=== PATIENT | male | born 1930 | race Caucasian/White ===

== ENCOUNTER → 2017-04-14 | Outpatient (CLI) | payer MEDICARE, BC ==
[~2017-04-14] MED LIST: AMLODIPINE BESYL5 MG PO; ATENOLOL50 MG PO; BP MED; CHOL MED; LASIX20 MG PO; LEVOTHYROXINE75 MCG PO; LISINOPRIL10 MG PO; POTASSIUM CHLO10 ME2 PO; VITAMIN D1000 UNIT PO; XARELTO; XARELTO20 MG PO; ZYLOPRIM100 MG PO
--- NOTE | ~2017-04-14 | CT71 ---
[facility] A Service of [facility] RADIOLOGY TEXT RESULTS PATIENT: ARMANDO SMALLWOOD LOCATION: [facility] : 32 UNIT #: [id number] AGE: [address]: Ria Veras APRN SEX: M ORDER DR: [id number] [address] [address] [id number] O MR#: [id number] Acc #: [id number] NAME: ARMANDO SMALLWOOD. : 1930 SEX: M STUDY DATE/TIME: 04/14/2017 10:42 UNIT: [facility] ROOM: STUDY DESCRIPTION: CT Head Wo Contrast Attending Physician: Ria Veras A.P.R.N. Referring Physician: Ria Veras A.P.R.N. Ordering Physician: Ria Veras A.P.R.N. Primary Care Physician: Ria Veras A.P.R.N. MEDICAL IMAGING REPORT This report is preliminary unless electronic signature is present. EXAM CT of the head without contrast. INDICATIONS Episodes of dizziness for 2 months. Memory problems for one year. These have been worsening. TECHNIQUE Axial CT images were obtained from the vertex of the skull through the skull base. No intravenous contrast material was administered. This CT exam was performed with one or more of the following radiation dose reduction techniques: automatic exposure control, adjustment of mA and/or kV according to patient size, and iterative reconstruction. COMPARISON Comparison made to prior exam from February 01, 2008. FINDINGS No acute intracranial hemorrhage is identified. There is marked diffuse cerebral atrophy with compensatory ventricular dilatation which is in keeping with the age of 86. It does appear to have progressed when compared to January of 2008. 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 No new areas of decreased attenuation are identified. 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 There is some mild mucosal thickening identified within the ethmoid sinuses. Remainder of the visualized paranasal sinuses and mastoid air cells appear clear. No aggressive osseous abnormalities are seen. There are no focal soft tissue abnormalities. [facility]. [facility] A Service of [facility] RADIOLOGY TEXT RESULTS PATIENT: ARMAND[facility] SMALLWOOD [id number] 32 UNIT #: [id number] AGE: [address]: Ria Veras INSTRUMENT AND CONTROL TECHNICIAN SEX: M ORDER DR: IMPRESSION 1. No acute intracranial process identified. Specifically, there is no evidence of acute hemorrhage, mass lesion or acute infarct. Patient is noted to have advanced cerebral atrophy which is in keeping with the age of 86, but has progressed when compared to January of 2008. Dictated by... Joi Sauceda M.D. THIS IS AN ELECTRONICALLY VERIFIED REPORT Joi Sauceda M.D. at 04/14/2017 4:45 PM DURGA/adama TD: 04/14/2017 16:29 JOB #: [id number] MEDICAL IMAGING REPORT Page 1 of 1
== END | disposition home or self-care (01) ==
LOC: SCT 10:28
DX: R41.89 Other symptoms and signs involving cognitive functions and awareness (principal); G31.9 Degenerative disease of nervous system, unspecified
CPT/HCPCS: 70450

== ENCOUNTER → 2017-05-18 | Outpatient (CLI) | payer MEDICARE, BC | END | disposition home or self-care (01) | LOC: CLAB 14:22 | DX: R19.7 Diarrhea, unspecified (principal) | CPT/HCPCS: 82274; 87328; 87329; 87493 ==